=== PATIENT | male | born 1995 | race Caucasian/White ===

== ENCOUNTER 2020-02-08 22:37 | Emergency (ER) | payer OTHER | END 2020-02-08 23:33 | disposition other institution (70) | LOC: ED 22:37 | DX: Z02.89 Encounter for other administrative examinations (principal) ==

== ENCOUNTER 2020-02-08 22:37 | Emergency (ER) | payer SELFPAY ==
[~2020-02-08] VITALS: Ht 175.3 cm; Wt 90.7 kg
[2020-02-08 22:39] VITALS: Ht 175.3 cm; Wt 90.7 kg
[2020-02-08 23:33] VITALS: BP 156/88
== END 2020-02-08 23:33 | disposition other institution (70) ==
LOC: ED 22:37
DX: S00.83XA Contusion of other part of head, initial encounter (principal); V49.9XXA Car occupant (driver) (passenger) injured in unspecified traffic accident, initial encounter; Y93.89 Activity, other specified; Y92.89 Other specified places as the place of occurrence of the external cause; Y99.8 Other external cause status
CPT/HCPCS: 90715